=== PATIENT | female | born 1985 | race Caucasian/White ===

== ENCOUNTER 2018-02-26 10:08 | Observation (INO) | payer OTHER ==
[~2018-02-26] VITALS: Ht 165.1 cm; Wt 108.4 kg
[~2018-02-26 10:08] MED LIST: FOLI0.4T2 PO; PREN1TAB52 PO
[2018-02-26 10:41] VITALS: BP 132/63
[2018-02-27] MEDS ORDERED: METHY250 PO (10:10)
== END 2018-02-26 12:30 | disposition home or self-care (01) ==
LOC: 4S 10:08 → UNDOADMOB 10:10
PROVIDERS: ADMIT Obstetrics & Gynecology; ATTEND Obstetrics & Gynecology
DX: O48.0 Post-term pregnancy (principal); O10.013 Pre-existing essential hypertension complicating pregnancy, third trimester; Z3A.40 40 weeks gestation of pregnancy
CPT/HCPCS: 59025; 76811; G0378

== ENCOUNTER 2018-02-27 08:40 | Inpatient (IN) | payer OTHER ==
[~2018-02-27] VITALS: Ht 160 cm; Wt 108.0 kg
[2018-02-27 09:42] VITALS: BP 118/56
[2018-02-27] MEDS ORDERED: METHY250 PO (10:10)
[2018-02-27] MEDS ORDERED: RINGERS SOLUTION,LACTATED 1,000 ML IV SCH (10:55)
[2018-02-27] MEDS ORDERED: OXYTOCIN 30 UNITS/LACT RINGERS 500 ML IV ONE (10:55)
[2018-02-27] MEDS ORDERED: OXYTOCIN 30 UNITS/LACT RINGERS 500 ML IV PRN (10:55)
[2018-02-27] MEDS ORDERED: RINGERS SOLUTION,LACTATED 1,000 ML IV PRN (10:55)
[2018-02-27] MEDS ORDERED: METOCLOPRAMIDE HCL 5 MG/ML 2 ML VIAL IVP PRN (11:00)
[2018-02-27] MEDS ORDERED: CARBOPROST TROMETHAMINE 250 MCG/ML AMP IM PRN (11:00)
[2018-02-27] MEDS ORDERED: FentaNYL CITRATE-PF 100 MCG/2 ML VIAL IVP PRN (11:00)
[2018-02-27] MEDS ORDERED: TERBUTALINE SULFATE 1 MG/ML VIAL SQ PRN (11:00)
[2018-02-27] MEDS ORDERED: METHYLERGONOVINE MALEATE 0.2 MG/ML VIAL IM PRN (11:00)
[2018-02-27] MEDS ORDERED: OXYGEN THERAPY IH SCH (11:00)
[2018-02-27] MEDS ORDERED: CITRIC ACID/SODIUM CITRATE 30 ML SOLUTION UDCUP PO PRN (11:00)
[2018-02-27] MEDS ORDERED: LIDOCAINE HCL/PF 1% 30 ML VIAL INJ PRN (11:00)
[2018-02-27 11:55] LABS: BASOPHILS % (AUTO) 0.3 % (0.0-2.0); EOSINOPHILS % (AUTO) 0.2 % (1.0-6.0); HEMATOCRIT 37.5 % (36-46); HEMOGLOBIN 12.9 g/dL (12.0-16.0); LYMPHOCYTES # (AUTO) 1.2 K/uL (1.0-4.8); LYMPHOCYTES % (AUTO) 9.7 % (22.0-44.0); MEAN CORPUSCULAR HEMOGLOBIN 31.4 pg (26.0-34.0); MEAN CORPUSCULAR HGB CONC 34.5 G/dL (31.0-37.0); MEAN CORPUSCULAR VOLUME 91 fL (80-100); MONOCYTES # (AUTO) 0.6 K/uL (0.1-1.0); MONOCYTES % (AUTO) 4.6 % (2.0-9.0); NEUTROPHILS # (AUTO) 10.7 K/uL (1.8-7.7); PLATELET COUNT (AUTO)-OB 181 K/uL (150-450); RED BLOOD CELL COUNT(AUTO) 4.12 MIL/uL (4.00-5.20); RED CELL DISTRIBUTION WIDTH 13.7 % (11.5-14.5)
[2018-02-27] MEDS ORDERED: ROPIVACAINE HCL/PF 0.2% 100 ML ED ONE (11:55)
[2018-02-27 11:57] LABS: NEUTROPHILS % (AUTO) 85.2 % (40.0-70.0)
[2018-02-27] MEDS ORDERED: FentaNYL/BUPIV 0.125%/NS/PF 200 ML ED PRN (14:43)
[2018-02-27] MEDS ORDERED: ONDANSETRON HCL 4 MG/2 ML VIAL IVP PRN (14:45)
[2018-02-27] MEDS ORDERED: NALBUPHINE HCL 10 MG/ML VIAL IVP PRN (14:45)
[2018-02-27] MEDS ORDERED: DiphenhydrAMINE HCL 50 MG/ML VIAL IVP PRN (14:45)
[2018-02-27] MEDS ORDERED: RINGERS SOLUTION,LACTATED 1,000 ML IV ONE (17:35)
[2018-02-27] MEDS ORDERED: GLYCERIN/WITCH HAZEL LEAF 40 PADS JAR TP PRN (17:45)
[2018-02-27] MEDS ORDERED: MEASLES/MUMPS/RUBELLA VACCINE, LIVE 0.5 ML/VIAL SQ ONE (17:45)
[2018-02-27] MEDS ORDERED: LANOLIN 7 GM OINTMENT TP PRN (17:45)
[2018-02-27] MEDS ORDERED: OxyCODONE HCL/ACETAMINOPHEN 5-325 MG TABLET PO PRN ×2 (17:45)
[2018-02-27] MEDS ORDERED: BENZOCAINE 20%/MENTHOL 56 GM SPRAY CANISTER TP PRN (17:45)
[2018-02-27] MEDS: MAGNESIUM HYDROXIDE SUSPENSION 30 ML UDCUP PO SCH (21:12)
[2018-02-27] MEDS: IBUPROFEN 600 MG TABLET PO PRN (22:50)
[2018-02-28] MEDS: IBUPROFEN 600 MG TABLET PO PRN (04:39)
[2018-02-28] MEDS: MAGNESIUM HYDROXIDE SUSPENSION 30 ML UDCUP PO SCH (09:36)
[2018-02-28] MEDS ORDERED: IBUP-2071 PO (11:13)
[2018-02-28] MEDS ORDERED: DSS100 PO (11:14)
== END 2018-02-28 17:15 | disposition home or self-care (01) | DRG 775 ==
LOC: OBSVTOIN 08:40 → 4S 08:40
PROVIDERS: ADMIT Obstetrics & Gynecology; ATTEND Obstetrics & Gynecology
PROC: 0KQM0ZZ Repair Perineum Muscle, Open Approach (ICD-10-PCS; principal; 2018-02-27)
PROC: 10E0XZZ Delivery of Products of Conception, External Approach (ICD-10-PCS; 2018-02-27)
PROC: 3E0R3BZ Introduction of Anesthetic Agent into Spinal Canal, Percutaneous Approach (ICD-10-PCS; 2018-02-27)
PROC: 00HU33Z Insertion of Infusion Device into Spinal Canal, Percutaneous Approach (ICD-10-PCS; 2018-02-27)
DX: O70.1 Second degree perineal laceration during delivery (principal); Z37.0 Single live birth; Z3A.40 40 weeks gestation of pregnancy
CPT/HCPCS: 86850; 86900; 86901; J2590; J2795; J7120